=== PATIENT | female | born 1925 | race Caucasian/White ===

== ENCOUNTER 2016-12-05 05:59 | Emergency (ER) | payer MEDICARE, MEDICAID ==
--- NOTE | 2016-12-05 06:09 | PCM.SN ---
- Free Text/Narrative Note: 12/05/2016 Received a call from Robby Banda on 12/04/2016 that Luis Miguel had some limited vomiting. Orders sent to place a clear liquid diet. Has orders for Zofran Q4h prn. No diarrhea. Otherwise stable with no other findings of concern. Nursing called 0540 this morning to say that she continued to vomit bilious material that "smelled fecal" to the nurse. Instructed to send to ER to rule out bowel obstruction. ER informed that Luis Miguel was being sent. No prevous history of bowel obstruction.
--- NOTE | 2016-12-05 06:21 | EDM.PDOC ---
<Crystal Martinez Jovan - Last Filed: 12/05/16 06:29> ED HPI GENERAL MEDICAL PROBLEM - General Chief Complaint: Gastrointestinal Problem Stated Complaint: AMBULANCE Time Seen by Provider: 12/05/16 06:05 Source of Information: Reports: EMS, [facility] Records History Limitations: Reports: No Limitations, Altered Mental Status - History of Present Illness INITIAL COMMENTS - FREE TEXT/NARRATIVE: Patient reported to have been vomiting past 2 days, clear yellow brown liquid with up to 4 quarts past 24 hours. Emesis this am reported to have had fecal odor . No reported hx of bowel obstruction. Last BM 2 days ago. Treatments ACID ETCH OPERATOR: Reports: Other (see below) Other Treatments ACID ETCH OPERATOR: zofran 8mg IM - Related Data Allergies Allergy/AdvReac Type Severity Reaction Status Date / Time No Known Allergies Allergy Verified 12/05/16 05:49 Home Meds: Home Meds Brimonidine/Timolol [Combigan 0.2%/0.5% Ophth Soln] 1 drop EYEBOTH ASDIRECTED [History] Levothyroxine 100 mcg PO ACBREAKFAST 12/15/14 [History] Quinapril [Accupril] 10 mg PO DAILY 12/15/14 [History] oxyCODONE [Oxycodone HCl] 5 mg PO Q6H PRN 12/15/14 [History] Aspirin [Halfprin] 81 mg PO ASDIRECTED 10/12/15 [History] Bisacodyl 10 mg RECTAL DAILY PRN 10/12/15 [History] Iron Polysaccharide Complex [Polysaccharide Iron 150] 150 mg PO DAILY 10/12/15 [ History] Loperamide [Imodium] 2 mg PO QID PRN 10/12/15 [History] Magnesium Hydroxide [Milk of Magnesia] 10 ml PO DAILY 10/12/15 [History] Mv-Mn/FA/Vit K/Lycop/Lut/Zeaxa [Ocuvite Eye + Multi Tablet] 1 tab PO DAILY 10/11 [History] Nystatin [Nystatin Crm] 1 applic TOP ASDIRECTED 10/12/15 [History] Ondansetron [Zofran ODT] 4 mg PO ASDIRECTED 10/12/15 [History] Polyethylene Glycol 3350 [MiraLAX] 17 gm PO ASDIRECTED 10/12/15 [History] Sennosides/Docusate Sodium [Senna S Tablet] 2 tab PO BID 10/12/15 [History] Sertraline HCl 150 mg PO BEDTIME 10/12/15 [History] oxyCODONE ER [OxyCONTIN] 20 mg PO TID 10/12/15 [History] Furosemide [Lasix] 20 mg PO DAILY 12/05/16 [History] Potassium Chloride [Klor-Con M20] 20 meq PO DAILY 12/05/16 [History] Past Medical History HEENT History: Reports: Glaucoma, Hard of Hearing, Impaired Vision Cardiovascular History: Reports: High Cholesterol, Hypertension Other OB/BYN History: hysterectomy Musculoskeletal History: Reports: Fracture, Osteoarthritis Other Musculoskeletal History: mostly pain in shoulders and arms. Neurological History: Reports: Other (See Below) Endocrine/Metabolic History: Reports: Hypothyroidism Hematologic History: Reports: Anemia, Iron Deficiency Social & Family History - Family History Family Medical History: Noncontributory - Tobacco Use Smoking Status *Q: Former Smoker Used Tobacco, but Quit: Yes Month Tobacco Last Used: 1971 Second Hand Smoke Exposure: No - Caffeine Use Caffeine Use: Reports: Coffee - Recreational Drug Use Recreational Drug Use: No - Living Situation & Occupation Living situation: Reports: , Extended Care Facility Occupation: Retired ED ROS GENERAL - Review of Systems Constitutional: Reports: No Symptoms HEENT: Reports: No Symptoms Respiratory: Reports: No Symptoms Cardiovascular: Reports: No Symptoms GI/Abdominal: Reports: Decreased Appetite, Vomiting : Reports: No Symptoms ED EXAM, GI/ABD - Physical Exam Exam: See Below Exam Limited By: No Limitations General Appearance: Alert, Mild Distress Eyes: Bilateral: EOMI Ears: Normal External Exam Nose: Normal Inspection Throat/Mouth: Normal Inspection Head: Atraumatic, Normocephalic Neck: Normal Inspection Respiratory/Chest: No Respiratory Distress, Normal Breath Sounds Cardiovascular: Normal Peripheral Pulses, Regular Rate, Rhythm GI/Abdominal: Hypoactive Bowel Sounds. No: Guarding, Rigidity Extremities: No Pedal Edema Neurological: Alert, Other (Dementia, Only verabla response is "take me home") Skin Exam: Warm, Dry, No Rash, Pallor Course - Vital Signs Last Recorded V/S: Last Vital Signs Temp 35.8 C 12/05/16 06:05 Pulse 81 12/05/16 07:00 Resp 16 12/05/16 07:00 BP 142/73 H 12/05/16 07:00 Pulse Ox 94 L 12/05/16 07:00 - Orders/Labs/Meds Labs: Laboratory Tests 12/05/16 12/05/16 12/05/16 Range/Units 06:16 06:16 06:16 WBC 23.4 H (5.0-10.0) 10^3/uL RBC 4.52 (4.2-5.4) 10^6/uL Hgb 13.9 (12.0-16.0) g/dL Hct 43.1 (37.0-47.0) % MCV 95.4 (80-100) fL MCH 30.8 (27.0-34.0) pg MCHC 32.3 L (33.0-35.0) g/dL Plt Count 422 (150-450) 10^3/uL Neut % (Auto) 80.2 H (42.2-75.2) % Lymph % (Auto) 11.9 L (20.5-50.1) % [place] % (Auto) 7.8 (2-8) % Eos % (Auto) 0.0 L (1.0-3.0) % Baso % (Auto) 0.1 (0.0-1.0) % Add Manual Diff Yes Neutrophils % (Manual) 82 % Band Neutrophils % 2 % Lymphocytes % (Manual) 10 % Monocytes % (Manual) 6 % Sodium 142 (135-145) mmol/L Potassium 4.7 (3.6-5.0) mmol/L Chloride 95 L (101-111) mmol/L Carbon Dioxide 32.0 H (21.0-31.0) mmol/L Anion Gap 19.7 BUN 61 H (7-18) mg/dL Creatinine 2.2 H (0.6-1.3) mg/dL Est Cr Clr Drug Dosing TNP Estimated GFR (MDRD) 21 BUN/Creatinine Ratio 27.72 Glucose 191 H (74-105) mg/dL Lactic Acid (0.5-2.2) mmol/L Calcium 9.3 (8.4-10.2) mg/dl Total Bilirubin 0.6 (0.2-1.0) mg/dL AST 25 (10-42) IU/L ALT 22 (10-60) IU/L Alkaline Phosphatase 88 (42-121) IU/L Total Protein 8.3 H (6.7-8.2) g/dl Albumin 3.9 (3.2-5.5) g/dl Globulin 4.4 Albumin/Globulin Ratio 0.89 Amylase 56 (28-100) U/L Lipase 25 (22-51) U/L Urine Color (YELLOW) Urine Appearance (CLEAR) Urine pH (5.0-9.0) Ur Specific [place] (1.005-1.030) Urine Protein (NEGATIVE) Urine Glucose (UA) (NEGATIVE) Urine Ketones (NEGATIVE) Urine Occult Blood (NEGATIVE) Urine Nitrite (NEGATIVE) Urine Bilirubin (NEGATIVE) Urine Urobilinogen (0.2-1.0) mg/dL Ur Leukocyte Esterase (NEGATIVE) Urine RBC /HPF Urine WBC (0-5/HPF) /HPF Ur Epithelial Cells /HPF Amorphous Sediment (0/HPF) /HPF Urine Bacteria (0-FEW/HPF) /HPF 12/05/16 12/05/16 Range/Units 06:16 06:54 WBC (5.0-10.0) 10^3/uL RBC (4.2-5.4) 10^6/uL Hgb (12.0-16.0) g/dL Hct (37.0-47.0) % MCV (80-100) fL MCH (27.0-34.0) pg MCHC (33.0-35.0) g/dL Plt Count (150-450) 10^3/uL Neut % (Auto) (42.2-75.2) % Lymph % (Auto) (20.5-50.1) % [place] % (Auto) (2-8) % Eos % (Auto) (1.0-3.0) % Baso % (Auto) (0.0-1.0) % Add Manual Diff Neutrophils % (Manual) % Band Neutrophils % % Lymphocytes % (Manual) % Monocytes % (Manual) % Sodium (135-145) mmol/L Potassium (3.6-5.0) mmol/L Chloride (101-111) mmol/L Carbon Dioxide (21.0-31.0) mmol/L Anion Gap BUN (7-18) mg/dL Creatinine (0.6-1.3) mg/dL Est Cr Clr Drug Dosing Estimated GFR (MDRD) BUN/Creatinine Ratio Glucose (74-105) mg/dL Lactic Acid 1.9 (0.5-2.2) mmol/L Calcium (8.4-10.2) mg/dl Total Bilirubin (0.2-1.0) mg/dL AST (10-42) IU/L ALT (10-60) IU/L Alkaline Phosphatase (42-121) IU/L Total Protein (6.7-8.2) g/dl Albumin (3.2-5.5) g/dl Globulin Albumin/Globulin Ratio Amylase (28-100) U/L Lipase (22-51) U/L Urine Color Yellow (YELLOW) Urine Appearance Turbid (CLEAR) Urine pH 5.0 (5.0-9.0) Ur Specific [place] 1.025 (1.005-1.030) Urine Protein >=300 H (NEGATIVE) Urine Glucose (UA) Negative (NEGATIVE) Urine Ketones Negative (NEGATIVE) Urine Occult Blood Moderate H (NEGATIVE) Urine Nitrite Negative (NEGATIVE) Urine Bilirubin Small H (NEGATIVE) Urine Urobilinogen 0.2 (0.2-1.0) mg/dL Ur Leukocyte Esterase Trace H (NEGATIVE) Urine RBC 5-10 H /HPF Urine WBC 20-30 H (0-5/HPF) /HPF Ur Epithelial Cells Rare /HPF Amorphous Sediment Few (0/HPF) /HPF Urine Bacteria Many H (0-FEW/HPF) /HPF Meds: Medications Discontinued Medications Generic Name Dose Route Start Last Admin Trade Name Freq PRN Reason Stop Dose Admin Metoclopramide HCl 10 mg 12/05/16 06:46 12/05/16 06:58 Reglan IVPUSH 12/05/16 06:47 10 mg ONETIME ONE Administration Departure - Departure Disposition: Home, Self-Care 01 Clinical Impression: Small bowel obstruction Acute renal failure Qualifiers: Acute renal failure type: unspecified Qualified Code(s): N17.9 - Acute kidney failure, unspecified Altered mental status Qualifiers: Altered mental status type: unspecified Qualified Code(s): R41.82 - Altered mental status, unspecified - Discharge Information Forms: ED Department Discharge Additional Instructions: Transfer by ambulance back to [facility] to care of Dr. Austin with orders for care upon return provided by Dr. Austin. <Allan Gilliam - Last Filed: 06/04/17 09:19> ED HPI GENERAL MEDICAL PROBLEM - History of Present Illness INITIAL COMMENTS - FREE TEXT/NARRATIVE: Assumed care of pt from Crystal LAROSE at 0700HR shift change. Dr. Austin (pt' s PCP) was contacted, and given the pt's rapid decline and serious condition, she came to evaluate the pt in the ER to determine what care and/or treatment would be most appropriate for the pt. ED ROS GENERAL - Review of Systems Review Of Systems: See Below ED EXAM, GI/ABD - Physical Exam Text/Narrative:: No changes to exam as documented by Crystal LAROSE for encounter. Course - Re-Assessments/Exams Free Text/Narrative Re-Assessment/Exam: 12/05/16 09:09 Pt has elevated WBC, partial SBO, acute renal failure, and altered mental status. Dr. Austin came to the ER and evaluated the pt and has reviewed the case and diagnostic findings in person with me. Dr. Austin and I agree that given the pt's poor clinical condition prior to today's ER presentation, that her current findings represent a likely terminal process. Dr. Austin has made multiple efforts to contact family, and has made contact with Carolynn Stroud to explain the pt's grave clinical situation. Dr. Austin will have the pt transferred back to the [facility] and provide comfort care and other orders as deemed appropriate. Departure - Departure Time of Disposition: 09:04 (d/c to Dr. Austin back to [facility] bed.) Condition: poor
[2016-12-05 06:43] LABS: CHLORIDE,CL 95 mmol/L (101-111); SODIUM,NA 142 mmol/L (135-145)
[2016-12-05] MEDS ORDERED: Metoclopramide 10 MG/2 ML SDV IVPUSH ONE (06:46)
[2016-12-05 07:01] VITALS: BP 142/73
== END 2016-12-05 09:35 | disposition home or self-care (01) ==
LOC: DL.ED 05:59
DX: K56.60 Unspecified intestinal obstruction (principal); N17.9 Acute kidney failure, unspecified; R41.82 Altered mental status, unspecified; E78.00 Pure hypercholesterolemia, unspecified; I10 Essential (primary) hypertension; M19.90 Unspecified osteoarthritis, unspecified site; Z87.891 Personal history of nicotine dependence; E03.9 Hypothyroidism, unspecified; D64.9 Anemia, unspecified; Z79.899 Other long term (current) drug therapy; Z79.82 Long term (current) use of aspirin; Z90.710 Acquired absence of both cervix and uterus
CPT/HCPCS: 36415; 51702; 74176; 80053; 81001; 82150; 83605; 83690; 85025; 96374; 99285; J2765; 99284